=== PATIENT | female | born 1955 | race Caucasian/White ===

== ENCOUNTER 2016-12-18 08:20 | Emergency (ER) | payer BC ==
[2016-12-18 08:48] VITALS: BP 142/88
--- NOTE | 2016-12-18 09:14 | UC ---
Throat Pain/Nasal Beau HPI - HPI Summary HPI Summary: 61 yo female with the onset of nasal congestion and sneezing now with severe sinus pressure/dental pain (upper teeth and gums) and headache currently headache is mild dysguesia has felt hot and cold but no documented fever no true allergy to PCN had diarrhea with amoxicillin - History of Current Complaint Chief Complaint: UCRespiratory Stated Complaint: SINUSES Time Seen by Provider: 12/18/16 08:56 Hx Obtained From: Patient Onset/Duration: Gradual Onset, Lasting Days Severity: Moderate Pain Intensity: 3 Pain Scale Used: 0-10 Numeric Cough: Nonproductive Associated Signs & Symptoms: Positive: Sinus Discomfort, Nasal Discharge Related History: Prior ENT Surgery - left mastoiditis - Epiglottits Risk Factors Epiglottis Risk Factors: Negative - Allergies/Home Medications Allergies/Adverse Reactions: Allergies Allergy/AdvReac Type Severity Reaction Status Date / Time Morphine Allergy Itching Verified 12/18/16 08:48 Penicillins Allergy Diarrhea Verified 12/18/16 08:42 Home Medications: Home Medications Acetaminophen 1,000 mg PO ONCE PRN 12/18/16 [History Confirmed 12/18/16] Aspirin [Aspirin 81 MG TAB] 81 mg PO DAILY 12/18/16 [History Confirmed 12/18/16] Calcium Carbonate-Cholecalcife [Calcium 600 + D 600-200 mg-Unit] 1 tab PO BID [History Confirmed 12/18/16] Fiber [Fiber Complete] 62.5 mg PO BID 12/18/16 [History Confirmed 12/18/16] Gabapentin TAB(NF) [Neurontin 600 mg TAB(NF)] 600 mg PO BID 12/18/16 [History Confirmed 12/18/16] Hydrochlorothiazide TAB* [Hydrodiuril TAB*] 25 mg PO DAILY 12/18/16 [History Confirmed 12/18/16] Metoprolol Tartrate [Lopressor] 50 mg PO BID 12/18/16 [History Confirmed ] Zolpidem TAB* [Ambien TAB*] 10 mg PO BEDTIME 12/18/16 [History Confirmed ] PMH/Surg Hx/FS Hx/Imm Hx Previously Healthy: Yes Cardiovascular History Of: Reports: Hypertension - Surgical History Surgical History: Yes Surgery Procedure, Year, and Place: lumpectomy. ear surgey- mastoidectomy. hysterectomy. tonsilectomy - Family History Known Family History: Negative: Cardiac Disease, Hypertension, Diabetes - Social History Alcohol Use: None Substance Use Type: None Smoking Status (MU): Never Smoked Tobacco Review of Systems Constitutional: Fatigue Skin: Negative Eyes: Negative ENT: Dental Pain, Nasal Discharge Respiratory: Cough Cardiovascular: Negative Gastrointestinal: Negative Genitourinary: Negative Motor: Negative Neurovascular: Negative Musculoskeletal: Negative Neurological: Negative Psychological: Negative All Other Systems Reviewed And Are Negative: Yes Physical Exam Triage Information Reviewed: Yes Appearance: Well-Appearing, No Pain Distress, Well-Nourished Vital Signs: Initial Vital Signs Temp 98.5 F 12/18/16 08:43 Pulse 78 12/18/16 08:43 Resp 18 12/18/16 08:43 BP 142/88 12/18/16 08:43 Pulse Ox 99 12/18/16 08:43 Vital Signs Reviewed: Yes Eyes: Positive: Conjunctiva Clear ENT: Positive: Pharynx normal, Nasal congestion, Nasal drainage. Negative: Normal ENT inspection, TMs normal - left TM surgical changes, Tonsillar exudate , Trismus, Muffled/hoarse voice Dental: Negative: Gross Decay/Caries @, Dental Fracture @, Abscess @ Neck: Positive: Supple, Nontender, No Lymphadenopathy Respiratory: Positive: Lungs clear, Normal breath sounds, No respiratory distress, No accessory muscle use Cardiovascular: Positive: RRR, No Murmur Neurological: Positive: Alert Psychological Exam: Normal Skin Exam: Normal Throat Pain/Nasal Course/Dx - Differential Dx/Diagnosis Provider Diagnoses: acute sinusitis Discharge - Discharge Plan Condition: Stable Disposition: HOME Prescriptions: Cefuroxime Axetil [Ceftin 250 MG] 250 mg PO BID #20 tab Patient Education Materials: Sinusitis (ED) Referrals: Nadir Steiner DO [Primary Care Provider] - Additional Instructions: saline nasal spray two sprays twice daily for three days see your MD mid week if not better recheck for new or worsening symptoms
== END 2016-12-18 09:25 | disposition home or self-care (01) ==
LOC: UCCORT 08:20
DX: J01.90 Acute sinusitis, unspecified (principal); I10 Essential (primary) hypertension; Z88.5 Allergy status to narcotic agent; Z88.0 Allergy status to penicillin
CPT/HCPCS: 99202; G0463